=== PATIENT | female | born 1985 | race African-American/Black ===

== ENCOUNTER 2021-08-18 13:24 | Emergency (ER) | payer OTHER ==
[~2021-08-18] VITALS: Ht 162.6 cm; Wt 111.1 kg
[2021-08-18] MEDS ORDERED: [UNRECOGNIZED DRUG - OTHER] (14:02)
== END 2021-08-18 14:47 | disposition home or self-care (01) ==
LOC: ER 13:24
DX: S61.210A Laceration without foreign body of right index finger without damage to nail, initial encounter (principal); W26.0XXA Contact with knife, initial encounter; Y93.G3 Activity, cooking and baking; Y92.010 Kitchen of single-family (private) house as the place of occurrence of the external cause; Y99.8 Other external cause status